=== PATIENT | female | born 2000 | race African-American/Black ===

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

== ENCOUNTER → 2018-02-11 | Outpatient (CLI) | payer MEDICAID ==
[~2018-02-11] MED LIST changes: +ACET325T15 PO; +CEPH-459 PO; +CEPH-460 PO; +DOCU1CAP39 PO
== END ==
LOC: HPND 11:30
PROVIDERS: ATTEND Obstetrics & Gynecology
DX: O26.872 Cervical shortening, second trimester (principal); O09.32 Supervision of pregnancy with insufficient antenatal care, second trimester
CPT/HCPCS: 76816

== ENCOUNTER 2018-02-14 20:22 | Inpatient (IN) | payer MEDICAID ==
[~2018-02-14] VITALS: Ht 177.8 cm; Wt 63.5 kg
[~2018-02-14 20:22] MED LIST changes: -ACET325T15 PO; -CEPH-459 PO; -CEPH-460 PO; -DOCU1CAP39 PO
--- NOTE | 2018-02-14 20:49 | PD ---
HPI Chief Complaint Abdominal pain Date Seen: February 14, 2018 Travel History International Travel<30 Days: No Contact w/Intl Traveler<30Days: No Known Affected Area: No History of Present Illness HPI The patient is a 17 year old at 21/5 weeks gestation presents to OB triage for evaluation of abdominal pain. She states her abdominal pain began today disported properly at the right upper quadrant. She states she feels the pain mostly when she stands up at the right upper quadrant and right rib cage area that sometimes radiates if she feels pain in her left upper quadrant. She denies any leakage or gush of fluid. Denies contractions. Endorses positive movements. She denies any recent fevers or sick symptoms. She does endorse chills. She denies dysuria or hematuria. She does endorse some back pain. She denies any decreased p.o. intake of solids or liquids lately. She reports good oral hydration at home. Para: 0 : 1 History Past Medical History Narrative Medical Reports she is healthy Obstetric History Obstetric History Past Surgical History Surgical History: No Previous Surgery Family History Family History: Negative Social History Alcohol Use: No Tobacco Use: No Substance Abuse: No Allergies-Medications (Allergen,Severity, Reaction): Coded Allergies: No Known Allergies (Verified Adverse Reaction, Unknown, 08/21/17) Home Meds Active Scripts Cephalexin Monohydrate (Keflex) 250 Mg/5 Ml Susp, 10 ML PO BID for 10 Days Prov:Carlos Alberto Patel MD 01/26/11 Review of Systems Except as stated in HPI: all other systems reviewed are Neg Physical Exam Narrative GENERAL: Well-nourished, well-developed patient. SKIN: Warm and dry. HEAD: Normocephalic and atraumatic. EYES: No scleral icterus. No injection or drainage. ENT: No nasal drainage noted. Mucous membranes pink. Airway patent. NECK: Supple, trachea midline. No JVD. CARDIOVASCULAR: Regular rate and rhythm without murmurs, gallops, or rubs. RESPIRATORY: Breath sounds equal bilaterally. No accessory muscle use. ABDOMEN/GI: Abdomen soft, non-tender, bowel sounds present, no rebound, no guarding Gravid to 21 weeks size GENITOURINARY (performed by Dr. Shaw with female scrap handler present in examination room): External Genitalia: intact and normal in appearance Cervix: [-] Dilatation: Closed Effacement: Thick Station: [-] Presentation: [-] Membranes: [-] Uterine Contractions: [-] FHT's: 150s bpm on Doppler EXTREMITIES: No cyanosis or edema. BACK: Nontender without obvious deformity. +right sided CVA tenderness NEUROLOGICAL: Awake and alert. Motor and sensory grossly within normal limits. Normal speech. Data Data Vital Signs Reviewed: Yes [facility] Medical Record Reviewed: Yes Plan 17 year old female at 21/5 weeks gestation being evaluated due to abdominal pain. 1. Pyelonephritis - Abdominal pain likely due to pyelonephritis as the patient is reporting chills , + right-sided CVA tenderness, positive findings on UA - Patient denies vaginal bleeding or other abnormal vaginal discharge - UA positive for nitrites, mod leuk esterase - Will send urine for UA and culture regardless of UA findings - Check cbc, cmp, lactic acid, blood cultures - Cervix closed, long, and thick - Start patient on Ancef 2gm IV q8h - Start LR at 125 cc/hr - Continue to monitor vitals closely, monitoring for resolution of symptoms ideally within 48 hours of IV antibiotics Rik Butler Dr., MD R2 February 14, 2018 20:49
[2018-02-14] MEDS ORDERED: SODIUM CHLORIDE 0.9% FLUSH 10 ML FLUSH IV FLUSH PRN (21:15)
[2018-02-14] MEDS: SODIUM CHLORIDE 0.9% FLUSH 10 ML FLUSH IV FLUSH SCH (21:15)
--- NOTE | 2018-02-14 21:20 | HHI.HP ---
History & Physical H&P HPI Chief Complaint Abdominal pain Date Seen: February 14, 2018 Travel History International Travel<30 Days: No Contact w/Intl Traveler<30Days: No Known Affected Area: No History of Present Illness HPI The patient is a 17 year old at 21/5 weeks gestation presents to OB triage for evaluation of abdominal pain. She states her abdominal pain began today disported properly at the right upper quadrant. She states she feels the pain mostly when she stands up at the right upper quadrant and right rib cage area that sometimes radiates if she feels pain in her left upper quadrant. She denies any leakage or gush of fluid. Denies contractions. Endorses positive movements. She denies any recent fevers or sick symptoms. She does endorse chills. She denies dysuria or hematuria. She does endorse some back pain. She denies any decreased p.o. intake of solids or liquids lately. She reports good oral hydration at home. Para: 0 : 1 History Past Medical History Narrative Medical Reports she is healthy Obstetric History Obstetric History Past Surgical History Surgical History: No Previous Surgery Family History Family History: Negative Social History Alcohol Use: No Tobacco Use: No Substance Abuse: No Allergies-Medications (Allergen,Severity, Reaction): Coded Allergies: No Known Allergies (Verified Adverse Reaction, Unknown, 08/21/17) Home Meds Active Scripts Cephalexin Monohydrate (Keflex) 250 Mg/5 Ml Susp, 10 ML PO BID for 10 Days Prov:Carlos Alberto Patel MD 01/26/11 Review of Systems Except as stated in HPI: all other systems reviewed are Neg Physical Exam Narrative GENERAL: Well-nourished, well-developed patient. SKIN: Warm and dry. HEAD: Normocephalic and atraumatic. EYES: No scleral icterus. No injection or drainage. ENT: No nasal drainage noted. Mucous membranes pink. Airway patent. NECK: Supple, trachea midline. No JVD. CARDIOVASCULAR: Regular rate and rhythm without murmurs, gallops, or rubs. RESPIRATORY: Breath sounds equal bilaterally. No accessory muscle use. ABDOMEN/GI: Abdomen soft, non-tender, bowel sounds present, no rebound, no guarding Gravid to 21 weeks size GENITOURINARY (performed by Dr. Shaw with female mechanical systems design engineer present in examination room): External Genitalia: intact and normal in appearance Cervix: [-] Dilatation: Closed Effacement: Thick Station: [-] Presentation: [-] Membranes: [-] Uterine Contractions: [-] FHT's: 150s bpm on Doppler EXTREMITIES: No cyanosis or edema. BACK: Nontender without obvious deformity. +right sided CVA tenderness NEUROLOGICAL: Awake and alert. Motor and sensory grossly within normal limits. Normal speech. Data Data Vital Signs Reviewed: Yes [facility] Medical Record Reviewed: Yes Plan 17 year old female at 21/5 weeks gestation being evaluated due to abdominal pain. 1. Pyelonephritis - Abdominal pain likely due to pyelonephritis as the patient is reporting chills , + right-sided CVA tenderness, positive findings on UA - Patient denies vaginal bleeding or other abnormal vaginal discharge - UA positive for nitrites, mod leuk esterase - Will send urine for UA and culture regardless of UA findings - Check cbc, cmp, lactic acid, blood cultures - Cervix closed, long, and thick - Start patient on Ancef 2gm IV q8h - Start LR at 125 cc/hr - Continue to monitor vitals closely, monitoring for resolution of symptoms ideally within 48 hours of IV antibiotics viw Rik Ellis MD R2 February 14, 2018 21:20
[2018-02-14 21:25] LABS: BILIRUBIN, URINE NEG (NEG); BLOOD, URINE SMALL (NEG); GLUCOSE,URINE NEG (NEG); KETONE, URINE NEG (NEG); NITRITE,URINE POS (NEG); PH, URINE 5.5 (5.0-8.5); URINE COLOR Light (YELLW/STRAW); URINE LEUKOCYTE ESTERASE SMALL (NEG)
[2018-02-14] MEDS: LACTATED RINGER'S 1000 ML INJ 1,000 ML IV SCH (21:30)
[2018-02-14 21:34] LABS: BACTERIA, URINE OCC /hpf; MUCUS URINE MANY /lpf (OCC); SQUAMOUS EPITHELIAL CELL URINE 1 /hpf (0-5)
[2018-02-14] MEDS: oxyCODONE/ACETAMINOPHEN 5 MG/325 MG TAB PO PRN (22:00)
[2018-02-14 22:39] LABS: BASOPHIL % 0.3 % (0.0-2.0); EOSINOPHIL % 0.1 % (0.0-4.0); HEMATOCRIT 29.1 % (35.0-46.0); HEMOGLOBIN 10.1 GM/DL (11.6-15.3); LYMPH % 3.2 % (9.0-44.0); LYMPHOCYTE # 0.3 TH/MM3 (1.0-4.8); MEAN CELL VOLUME 81.8 FL (80.0-100.0); MEAN CORPUSCULAR HEMOGLOBIN 28.3 PG (27.0-34.0); MEAN CORPUSCULAR HGB CONC 34.6 % (32.0-36.0); MEAN PLATELET VOLUME 7.6 FL (7.0-11.0); MONO % 4.5 % (0.0-8.0); MONOCYTE # 0.5 TH/MM3 (0-0.9); NEUT % 91.9 % (16.0-70.0); PLATELET COUNT 203 TH/MM3 (150-450); RED BLOOD COUNT 3.56 MIL/MM3 (4.00-5.30); RED CELL DISTRIBUTION WIDTH 14.4 % (11.6-17.2); WHITE BLOOD COUNT 10.9 TH/MM3 (4.0-11.0)
[2018-02-14 22:57] LABS: ALBUMIN 2.8 GM/DL (3.4-5.0); ALT (GPT) 16 U/L (9-42); AST (GOT) 14 U/L (16-38); BLOOD UREA NITROGEN 3 MG/DL (7-18); CALCIUM 8.4 MG/DL (8.5-10.1); CHLORIDE 105 MEQ/L (98-107); CREATININE 0.41 MG/DL (0.50-1.00); GLOMERULAR FILTRATION RATE 242 ML/MIN (>89); GLUCOSE,RANDOM 88 MG/DL (74-106); SODIUM (NA) 138 MEQ/L (136-145)
[2018-02-14 22:59] LABS: ALKALINE PHOSPHATASE 62 U/L (45-117); TOTAL BILIRUBIN ADULT 0.3 MG/DL (0.2-1.0); TOTAL PROTEIN 6.1 GM/DL (6.4-8.2)
[2018-02-14] MEDS: ceFAZolin 2 GM PREMIX 50 ML IV SCH (23:00)
[2018-02-15] MEDS: oxyCODONE/ACETAMINOPHEN 5 MG/325 MG TAB PO PRN ×2 (02:00→17:16)
[2018-02-15] MEDS: LACTATED RINGER'S 1000 ML INJ 1,000 ML IV SCH ×3 (05:30→21:30)
[2018-02-15] MEDS: ceFAZolin 2 GM PREMIX 50 ML IV SCH ×3 (06:41→23:00)
--- NOTE | 2018-02-15 07:46 | PD.OB.ANTE ---
Subjective Diagnosis: (1) Pyelonephritis affecting in second trimester Diagnosis: Principal Interval History having less pain since admission, no N/V/D . Afeb VSS Objective Lab & Micro Results Test 02/14/18 20:44 02/14/18 22:22 Urine Color Light Urine Turbidity Slightly Urine pH 5.5 Urine Specific Beatrice 1.015 Urine Protein NEG mg/dL Urine Glucose (UA) NEG mg/dL Urine Ketones NEG mg/dL Urine Occult Blood SMALL Urine Nitrite POS Urine Bilirubin NEG Urine Urobilinogen 0.2 MG/DL Urine Leukocyte Esterase SMALL Urine WBC 50 /hpf Urine Squamous Epithelial Cells 1 /hpf Urine Bacteria OCC /hpf Urine Mucus MANY /lpf Microscopic Urinalysis Comment CULTURE INDICATED White Blood Count 10.9 TH/MM3 Red Blood Count 3.56 MIL/MM3 Hemoglobin 10.1 GM/DL Hematocrit 29.1 % Mean Corpuscular Volume 81.8 FL Mean Corpuscular Hemoglobin 28.3 PG Mean Corpuscular Hemoglobin Concent 34.6 % Red Cell Distribution Width 14.4 % Platelet Count 203 TH/MM3 Mean Platelet Volume 7.6 FL Neutrophils (%) (Auto) 91.9 % Lymphocytes (%) (Auto) 3.2 % Monocytes (%) (Auto) 4.5 % Eosinophils (%) (Auto) 0.1 % Basophils (%) (Auto) 0.3 % Neutrophils # (Auto) 10.0 TH/MM3 Lymphocytes # (Auto) 0.3 TH/MM3 Monocytes # (Auto) 0.5 TH/MM3 Eosinophils # (Auto) 0.0 TH/MM3 Basophils # (Auto) 0.0 TH/MM3 CBC Comment DIFF FINAL Differential Comment Blood Urea Nitrogen 3 MG/DL Creatinine 0.41 MG/DL Random Glucose 88 MG/DL Total Protein 6.1 GM/DL Albumin 2.8 GM/DL Calcium Level 8.4 MG/DL Alkaline Phosphatase 62 U/L Aspartate Amino Transf (AST/SGOT) 14 U/L Alanine Aminotransferase (ALT/SGPT) 16 U/L Total Bilirubin 0.3 MG/DL Sodium Level 138 MEQ/L Potassium Level 3.3 MEQ/L Chloride Level 105 MEQ/L Carbon Dioxide Level 25.0 MEQ/L Anion Gap 8 MEQ/L Estimat Glomerular Filtration Rate 242 ML/MIN Lactic Acid Level 1.2 mmol/L Date/Time Source Procedure Growth Status 02/14/18 22:27 Blood Peripheral Aerobic Blood Culture Pending Received 02/14/18 22:27 Blood Peripheral Anaerobic Blood Culture Pending Received 02/14/18 20:44 Urine Clean Catch Urine Culture Pending Received Physical Exam GENERAL: Well-nourished, well-developed patient. CARDIOVASCULAR: Regular rate and rhythm without murmurs, gallops, or rubs. RESPIRATORY: Breath sounds equal bilaterally. No accessory muscle use. ABDOMEN/GI: Abdomen soft, non-tender.less CVAT on R Fundus: [-at umb] GENITOURINARY: External Genitalia: intact and normal in appearance FHT's:144 EXTREMITIES: No cyanosis or edema, non-tender, without signs of DVT. Assessment and Plan Assessment and Plan Pyelo at 21 wks , Urine & blood Cult pending Improving on IV Ancef 2 gm q 8 D/C after48 hrs IVATB , decreased CVAT ,Afeb >24 hrs Mauro Shaw II, MD February 15, 2018 07:46
[2018-02-15 08:52] VITALS: BP 82/40; PULSE 116
[2018-02-15 09:00] VITALS: TEMP 99.5
[2018-02-15] MEDS: SODIUM CHLORIDE 0.9% FLUSH 10 ML FLUSH IV FLUSH SCH ×2 (09:00→21:00)
[2018-02-15] MEDS: ACETAMINOPHEN 325 MG TAB PO PRN ×2 (09:12→17:17)
[2018-02-15 12:28] VITALS: BP 99/46; PULSE 112; RESP 18; TEMP 99.3
[2018-02-15 16:54] VITALS: TEMP 101.2
[2018-02-15] MEDS ORDERED: Gentamicin Consult Pharmacy 1 EA OTHER SCH (17:30)
[2018-02-15] MEDS: GENTAMICIN INJ 320 MG in SODIUM CHLORIDE 0.9% INJ 100 ML IV SCH (20:00)
[2018-02-15 21:00] VITALS: RESP 18; TEMP 98.9
[2018-02-16] VITALS (10 sets, daily range): BP systolic 84–104; BP diastolic 41–62; PULSE 99–126; RESP 17; TEMP 98.1–98.6
[2018-02-16] MEDS: LACTATED RINGER'S 1000 ML INJ 1,000 ML IV SCH ×2 (02:24→08:08)
[2018-02-16] MEDS: ceFAZolin 2 GM PREMIX 50 ML IV SCH ×3 (07:40→22:44)
[2018-02-16] MEDS: SODIUM CHLORIDE 0.9% FLUSH 10 ML FLUSH IV FLUSH SCH (09:00)
--- NOTE | 2018-02-16 09:10 | PD.OB.ANTE ---
Subjective Diagnosis: (1) Pyelonephritis affecting in second trimester Diagnosis: Principal Interval History Patient is a 17-year-old 22 weeks and 0 days who presented with pyelonephritis. She had a fever overnight at around 5 PM of 101.2. Thus, for lack of clinical improvement, antibiotics were switched from Ancef to gentamicin. Today, she denies any fever, chills, nausea, vomiting, dysuria. She reports that her back pain is improving. Antepartum ROS: Reports: movement normal, Denies: New complaints, Loss of fluid, Vaginal bleeding, Contractions (Yordan Ridley MD R2) Objective Vital Signs Vital Signs Date Time Temp Pulse Resp B/P (MAP) Pulse Ox O2 Delivery O2 Flow Rate FiO2 02/16/18 07:51 98.6 17 02/16/18 07:45 110 89/43 (58) 02/16/18 06:31 126 104/41 (62) 02/15/18 21:00 98.9 18 02/15/18 16:54 101.2 02/15/18 12:28 99.3 18 02/15/18 12:28 112 99/46 (63) Lab & Micro Results Date/Time Source Procedure Growth Status 02/14/18 22:27 Blood Peripheral Aerobic Blood Culture - Preliminary NO GROWTH IN 1 DAY Resulted 02/14/18 22:27 Blood Peripheral Anaerobic Blood Culture - Preliminary NO GROWTH IN 1 DAY Resulted 02/14/18 20:44 Urine Clean Catch Urine Culture - Preliminary Gram Negative Emerson Resulted Physical Exam GENERAL: Well-nourished, well-developed patient. CARDIOVASCULAR: Regular rate and rhythm with iii/vi systolic murmur, but no gallops or rubs. RESPIRATORY: Breath sounds equal bilaterally. No accessory muscle use. ABDOMEN/GI: Abdomen soft, non-tender. Fundus: c/w 22 week gestation FHT's: Category: [Cat I] Baseline: [150] Reactive: [no accelerations noted today] Variability: [moderate] Decels: [none] EXTREMITIES: No cyanosis or edema, non-tender, without signs of DVT. (Yordan Ridley MD R2) Assessment and Plan Problem List: (1) Pyelonephritis affecting in second trimester ICD Codes: O23.02 - Infections of kidney in , second trimester Assessment and Plan Patient is a 17-year-old 22 weeks and 0 days who presented with pyelonephritis. She had a fever overnight at around 5 PM of 101.2. Thus, for lack of clinical improvement, antibiotics were switched from Ancef to gentamicin last night. 1. Pyelonephritis in -She reports that her back pain is improving. -Urine culture grew gram-negative emerson, antibiotic sensitivities pending; will follow -blood culture NGTD in 1 day -Ancef 2 gm IV q8h, started on 02/14 at 2300; gentamicin started 02/15 at 2000; plan for 48h IV abx -last fever on 02/15 at 1700, will be afebrile for over 24 hours at 1700 today d/w Dr. Hankins (Yordan Ridley MD R2) Assessment and Plan Patient seen and evaluated with resident under direct supervision, agree with assessment and plan. (Sagar Hankins MD) Yordan Ridley MD R2 February 16, 2018 09:10 Sagar Hankins MD February 16, 2018 09:36
[2018-02-16] MEDS: oxyCODONE/ACETAMINOPHEN 5 MG/325 MG TAB PO PRN ×2 (13:51→22:43)
[2018-02-16] MEDS: GENTAMICIN INJ 320 MG in SODIUM CHLORIDE 0.9% INJ 100 ML IV SCH (19:53)
[2018-02-16] MEDS ORDERED: BISACODYL EC 5 MG TABEC PO ONE (20:30)
[2018-02-16] MEDS: DOCUSATE SODIUM 100 MG CAP PO SCH (22:44)
[2018-02-17] VITALS (8 sets, daily range): BP systolic 95–100; BP diastolic 56–61; PULSE 103–107; RESP 17–18; TEMP 98–98.5
[2018-02-17] MEDS: LACTATED RINGER'S 1000 ML INJ 1,000 ML IV SCH ×2 (06:23→14:31)
[2018-02-17] MEDS: ceFAZolin 2 GM PREMIX 50 ML IV SCH ×2 (06:23→14:31)
--- NOTE | 2018-02-17 08:17 | PD.OB.ANTE ---
Subjective Diagnosis: (1) Pyelonephritis affecting in second trimester Diagnosis: Principal Interval History Patient states she is feeling better less pain, however the patient erythema been in the room has been sleeping extremely hard to arouse, when asked she says she is not eating however the nurses say they have seen her eat some things she has vomited once a day since she has been here Objective Vital Signs Vital Signs Date Time Temp Pulse Resp B/P (MAP) Pulse Ox O2 Delivery O2 Flow Rate FiO2 02/17/18 07:32 98.5 18 02/16/18 18:00 17 02/16/18 17:02 100/62 (75) 02/16/18 17:00 17 02/16/18 17:00 98.2 02/16/18 13:00 98.1 02/16/18 12:36 17 02/16/18 12:35 99 84/49 (61) 02/16/18 10:42 17 Lab & Micro Results Date/Time Source Procedure Growth Status 02/14/18 22:27 Blood Peripheral Aerobic Blood Culture - Preliminary NO GROWTH IN 2 DAYS Resulted 02/14/18 22:27 Blood Peripheral Anaerobic Blood Culture - Preliminary NO GROWTH IN 2 DAYS Resulted 02/14/18 20:44 Urine Clean Catch Urine Culture - Final Escherichia Coli Complete Physical Exam GENERAL: Well-nourished, well-developed patient. CARDIOVASCULAR: Regular rate and rhythm without murmurs, gallops, or rubs. RESPIRATORY: Breath sounds equal bilaterally. No accessory muscle use. ABDOMEN/GI: Abdomen soft, non-tender. Decreased right CVA tenderness but still present slightly Fundus: [Size equal dates-] GENITOURINARY: External Genitalia: intact and normal in appearance FHT's 144 EXTREMITIES: No cyanosis or edema, non-tender, without signs of DVT. Assessment and Plan Problem List: (1) Pyelonephritis affecting in second trimester ICD Codes: O23.02 - Infections of kidney in , second trimester Assessment and Plan pyeloNephritis 21 weeks that is responding to IV antibiotics, urine culture positive for E. coli sensitive to both antibiotics, she is greater than 24 hours afebrile last fever was 5/5 5 and 101.2. Patient is somewhat anorexic concerned she is not able to or willing to take her oral antibiotics as OP Plan the patient today nurse sees her eat so that she possibly can go home after her gentamicin dose in the evening dinner 5 or 6 & give her the dose and let her go We plan for her to take p.o. Macrobid twice daily for a week and then go to Macrodantin 50 mg daily for the remainder of Mauro Shaw II, MD February 17, 2018 08:17
[2018-02-17] MEDS: SODIUM CHLORIDE 0.9% FLUSH 10 ML FLUSH IV FLUSH SCH (09:00)
[2018-02-17] MEDS: DOCUSATE SODIUM 100 MG CAP PO SCH (09:13)
[2018-02-17] MEDS ORDERED: ONDANSETRON HCL 4 MG/2 ML VIAL IV PUSH PRN (09:30)
[2018-02-17] MEDS ORDERED: ACET325T15 PO (15:31)
[2018-02-17] MEDS ORDERED: CEPH-459 PO (15:31)
[2018-02-17] MEDS ORDERED: CEPH-460 PO (15:31)
[2018-02-17] MEDS ORDERED: DOCU1CAP39 PO (15:32)
--- NOTE | 2018-02-17 15:33 | HHI.DCPOC ---
Discharge Care Plan Diagnosis: (1) Pyelonephritis affecting in second trimester Report Symptoms to Your Doctor -Temperature above 100.5 degrees -Redness, of incision or excessive or foul smelling drainage -Unusual pain or calf pain -Increased vaginal bleeding -Painful or difficulty urinating -Feelings of extreme sadness or anxiety after 2 weeks Goals to Promote Your Health * To prevent worsening of your condition and complications, take all of your medications as prescribed and follow up with your OB provider within one week after hospital discharge. Directions to Meet Your Goals Take your medications as prescribed Follow your dietary instruction Follow activity as directed Ensure plenty of rest for recovery Drink fluids for hydration Keep your appointments as scheduled Take your immunizations and boosters as scheduled If your symptoms worsen call your PCP, if no PCP go to Urgent Care Center or Emergency Room Smoking is Dangerous to Your Health. Avoid second hand smoke Call the 24-hour crisis hotline for domestic abuse at Rik Arriaza MD R2 February 17, 2018 15:33
--- NOTE | 2018-02-19 14:43 | HHI.DS ---
Discharge Summary Admission Date February 14, 2018 at 21:23 Discharge Date: February 17, 2018 Admitting Diagnosis Pyelonephritis (1) Pyelonephritis affecting in second trimester Plan: Pyelonephritis 21 weeks that is responding to IV antibiotics, urine culture positive for E. coli sensitive to both antibiotics, she is greater than 24 hours afebrile last fever was 5/5 and 101.2. Patient is somewhat anorexic concerned she is not able to or willing to take her oral antibiotics as OP The patient after monitoring is able to tolerate a p.o. diet Patient was instructed as an outpatient to continue with Keflex 500 mg by mouth every 12 hours for 1 week followed by Keflex 50 mg by mouth every night for the remainder . ICD Codes: O23.02 - Infections of kidney in , second trimester Consultants None Brief History The patient is a 17 year old at 21/5 weeks gestation presents to OB triage for evaluation of abdominal pain. She states her abdominal pain began today disported properly at the right upper quadrant. She states she feels the pain mostly when she stands up at the right upper quadrant and right rib cage area that sometimes radiates if she feels pain in her left upper quadrant. She denies any leakage or gush of fluid. Denies contractions. Endorses positive movements. She denies any recent fevers or sick symptoms. She does endorse chills. She denies dysuria or hematuria. She does endorse some back pain. She denies any decreased p.o. intake of solids or liquids lately. She reports good oral hydration at home. PE at Discharge GENERAL: Well-nourished, well-developed patient. CARDIOVASCULAR: Regular rate and rhythm without murmurs, gallops, or rubs. RESPIRATORY: Breath sounds equal bilaterally. No accessory muscle use. ABDOMEN/GI: Abdomen soft, non-tender. Decreased right CVA tenderness but still present slightly Fundus: [Size equal dates-] GENITOURINARY: External Genitalia: intact and normal in appearance FHT's 144 EXTREMITIES: No cyanosis or edema, non-tender, without signs of DVT. Hospital Course The patient was started on Ancef 2 g IV q8h as well as maintenance IVF with LR at 125 cc/hr. cervix was noted to be long, thick, closed. Her urine culture returned > 100,000 cfus of E. coli sensitive to nitrofurantoin and gentamicin; resistant only to tetracyclines, trimethoprim, and Bactrim. The patient did well while hospitalized and was discharged after afebrile for nearly 48 hours. She was able to tolerate a p.o. diet. She was discharged with instructions to continue antibiotics with Keflex 500 mg by mouth every 12 hours for 1 week followed by Keflex 250 mg by mouth every night for the remainder of her . Pt Condition on Discharge: Stable Discharge Disposition: Discharge Home Discharge Instructions DIET: Follow Instructions for: As Tolerated, No Restrictions Activities you can perform: Regular-No Restrictions Follow up Referrals: SALES MARKETING COORDINATOR - 2-3 Days New Medications: Cephalexin (Keflex) 500 Mg Cap 500 MG PO Q12H for Infection, #14 CAP 0 Refills Cephalexin (Keflex) 250 Mg Cap 250 MG PO HS for Infection, #135 CAP 0 Refills Acetaminophen (Eq Acetaminophen) 325 Mg Tab 650 MG PO Q4H PRN for TEMP>100.4F,PAIN1-10,IRRITABLE, #30 TAB Docusate Sodium (Dok) 100 Mg Cap 100 MG PO BID, #30 CAP Rik Arriaza MD R2 February 19, 2018 14:43
== END 2018-02-17 17:32 | disposition home or self-care (01) | DRG 781 ==
LOC: HOBED 20:22 → H2EA 21:23 → OBSVTOIN 21:23
PROVIDERS: ADMIT Obstetrics & Gynecology Maternal & Fetal Medicine; ATTEND Obstetrics & Gynecology Maternal & Fetal Medicine
DX: O23.02 Infections of kidney in pregnancy, second trimester (principal); B96.20 Unspecified Escherichia coli [E. coli] as the cause of diseases classified elsewhere; Z3A.21 21 weeks gestation of pregnancy
CPT/HCPCS: 80053; 80170; 81001; 83605; 85025; 87040; 87077; 87086; 87186; J0690; J1580; J2405; J3010; J7120

== ENCOUNTER 2018-06-08 12:16 | Inpatient (IN) ==
[2018-06-08] MEDS ORDERED: Oxytocin 30 Units/500ml Premix 30 UNITS/500 ML BAG IV.SIG ONE (13:00)
[2018-06-08] MEDS ORDERED: Sodium Chlor 0.9% Inj 500 ML IV.SIG PRN (13:02)
[2018-06-08] MEDS ORDERED: Sod Chloride 0.9% Inj 1,000 ML IV.CONT PRN (13:02)
[2018-06-08] MEDS ORDERED: Oxytocin 30 Units/500ml Premix 30 UNITS/500 ML BAG IV.SIG PRN (13:02)
[2018-06-08] MEDS ORDERED: fentaNYL Citrate Inj 100 MCG/2 ML Ampul IV.PUSH PRN ×2 (13:02)
[2018-06-08] MEDS ORDERED: Naloxone Inj 0.4 MG/ML Vial IV.PUSH PRN (13:02)
--- NOTE | 2018-06-08 13:14 | ED ---
History of Present Illness Primary Care Physician: No Primary Care Physician Chief Complaint: Loss of fluid History of Present Illness: Ms. Fong is a at 38/0 here for loss of fluid at 11:20 this am. She reports a large gush of fluid, no odor, clear in color. Some associated decreased movement. She denies any vaginal bleeding, abdominal pain or contractions. has been complicated by 2 UTIs with the last progressing to pyelonephritis. Patient reports that she is on daily antibiotics prophylaxis, records reveal that antibiotic is Bactrim. Denies any other complications during . GBS status negative. Review of Systems Constitutional: Denies fever(s), Denies headache(s) Eyes: Denies blurry vision, Denies change in vision Ears, Nose, Mouth, and Throat: Denies sore throat Cardiovascular: Denies chest pain, Denies leg swelling Respiratory: Denies cough, Denies shortness of breath Gastrointestinal: Denies nausea, Denies vomiting Genitourinary: Denies difficulty urinating, Denies painful urination, Denies pelvic pain PMFSH - Medical History Medical History: Medical History (Last Updated 05/11/18 @ 23:58 by Sagar Hankins MD) History of pyelonephritis during - Tobacco History Smoking Status: Never smoker - Alcohol History How Often Do You Have a Drink Containing Alcohol: Never (Not during ) - Substance Use History Substance History: No History of Abuse - Travel History Recent Travel in the [facility] Within the Last 8 Weeks: No Recent Travel Out of the Country Within the Last 8 Weeks: No Medications and Allergies Allergies Allergy/AdvReac Type Severity Reaction Status Date / Time No Known Drug Allergies Allergy Unknown none Verified 06/08/18 15:35 Home Medications Medication Instructions Recorded Confirmed Type [id number] oil 1 tab PO DAILY 06/08/18 06/08/18 History [ Gummy] Exam Vital signs: Vital Signs 06/08/18 12:37 Temperature 98.5 F Pulse Rate 142 H Respiratory Rate 16 Blood Pressure 99/68 L Intake & Output 06/07/18 06/08/18 06/08/18 18:59 06:59 18:59 Weight 68.353 kg Narrative: GENERAL: Well-nourished, well-developed patient. SKIN: Warm and dry. HEAD: Normocephalic and atraumatic. CARDIOVASCULAR: Regular rate and rhythm without murmurs, gallops, or rubs. RESPIRATORY: Breath sounds equal bilaterally. No accessory muscle use. ABDOMEN/GI: Abdomen soft, non-tender, bowel sounds present, no rebound, no guarding Gravid GENITOURINARY: External Genitalia: intact and normal in appearance Cervix: Dilatation: 1-2 Effacement: 80 Station: -2 Presentation: Cephalic Membranes: Ruptured Uterine Contractions: Present FHT's: Category: 1 Baseline: 150 Reactive: Yes Variability: Moderate Decels: None EXTREMITIES: No cyanosis or edema. BACK: Nontender without obvious deformity. No CVA tenderness. NEUROLOGICAL: Awake and alert. Motor and sensory grossly within normal limits. Normal speech. Results - Labs CBC & Chem 7: 06/08/18 17:50 Assessment and Plan - Diagnosis (1) SROM (spontaneous rupture of membranes) Status: Acute - Plan 17-year-old female at 38 and 0 with spontaneous rupture of membranes at 1120 this a.m. reassuring heart tracing Admit to labor and delivery HIV screen, RPR, UA, OB/ psych drug screen, Naheed /GC PCR, rubella antibody, hepatitis profile Cervidil placement Continuous monitoring Expectant management - Attending Attestation The exam, history, and the medical decision-making described in the above note were completed with the assistance of the resident physician. I reviewed and agree with the findings presented. I attest that I had a [id number] encounter with the patient on the same day, and personally performed and documented my assessment and findings in the medical record. Discharge Plan - Physicians Team Primary Care Provider: Primary Care Marcio,[place] Attending Provider: Sagar Hankins
[2018-06-08] MEDS ORDERED: Citric Acid/Sodium Citrate Liq 30 ML UDC PO SCH (13:15)
[2018-06-08 14:15] LABS: Amphetamine Urine With Conf Neg (Neg); Benzodiazepine Urine With Conf Neg (Neg)
--- NOTE | 2018-06-08 14:21 | P.HPOB ---
History of Present Illness Primary Care Physician: No Primary Care Physician Chief Complaint: Loss of fluid History of Present Illness: Ms. Fong is a at 38/0 here for loss of fluid at 11:20 this am. She reports a large gush of fluid, no odor, clear in color. Some associated decreased movement. She denies any vaginal bleeding, abdominal pain or contractions. has been complicated by 2 UTIs with the last progressing to pyelonephritis. Patient reports that she is on daily antibiotics prophylaxis, records reveal that antibiotic is Bactrim. Denies any other complications during . GBS status negative. Review of Systems Constitutional: Denies fever(s), Denies headache(s) Eyes: Denies blurry vision, Denies change in vision Ears, Nose, Mouth, and Throat: Denies sore throat Cardiovascular: Denies chest pain, Denies leg swelling Respiratory: Denies cough, Denies shortness of breath Gastrointestinal: Denies nausea, Denies vomiting Genitourinary: Denies difficulty urinating, Denies painful urination, Denies pelvic pain PMFSH - Medical History Medical History: Medical History (Last Updated 05/11/18 @ 23:58 by Sagar Hankins MD) History of pyelonephritis during - Tobacco History Smoking Status: Never smoker - Alcohol History How Often Do You Have a Drink Containing Alcohol: Never (Not during ) - Substance Use History Substance History: No History of Abuse - Travel History Recent Travel in the [facility] Within the Last 8 Weeks: No Recent Travel Out of the Country Within the Last 8 Weeks: No Medications and Allergies Allergies Allergy/AdvReac Type Severity Reaction Status Date / Time No Known Allergies Allergy Unknown Uncoded 02/14/18 21:18 Home Medications Medication Instructions Recorded Confirmed Type [id number] oil 1 tab PO DAILY 06/08/18 06/08/18 History [ Gummy] Exam Vital signs: Vital Signs 06/08/18 12:37 Temperature 98.5 F Pulse Rate 142 H Respiratory Rate 16 Blood Pressure 99/68 L Intake & Output 06/07/18 06/08/18 06/08/18 18:59 06:59 18:59 Weight 68.353 kg Narrative: GENERAL: Well-nourished, well-developed patient. SKIN: Warm and dry. HEAD: Normocephalic and atraumatic. CARDIOVASCULAR: Regular rate and rhythm without murmurs, gallops, or rubs. RESPIRATORY: Breath sounds equal bilaterally. No accessory muscle use. ABDOMEN/GI: Abdomen soft, non-tender, bowel sounds present, no rebound, no guarding Gravid GENITOURINARY: External Genitalia: intact and normal in appearance Cervix: Dilatation: 1-2 Effacement: 80 Station: -2 Presentation: Cephalic Membranes: Ruptured Uterine Contractions: Present FHT's: Category: 1 Baseline: 150 Reactive: Yes Variability: Moderate Decels: None EXTREMITIES: No cyanosis or edema. BACK: Nontender without obvious deformity. No CVA tenderness. NEUROLOGICAL: Awake and alert. Motor and sensory grossly within normal limits. Normal speech. Assessment and Plan - Diagnosis (1) SROM (spontaneous rupture of membranes) Status: Acute - Plan 17-year-old female at 38 and 0 with spontaneous rupture of membranes at 1120 this a.m. reassuring heart tracing Admit to labor and delivery HIV screen, RPR, UA, OB/ psych drug screen, Naheed /GC PCR, rubella antibody, hepatitis profile Cervidil placement Continuous monitoring Expectant management Discharge Plan - Discharge Disposition Patient Disposition: 02 Transfer To [facility] [place] - Discharge Condition Condition: Good - Physicians Team Primary Care Provider: Primary Care Marcio,[place] Attending Provider: Sagar Hankins The exam, history, and the medical decision-making described in the above note were completed with the assistance of the resident physician. I reviewed and agree with the findings presented. I attest that I had a [id number] encounter with the patient on the same day, and personally performed and documented my assessment and findings in the medical record.
[2018-06-08 14:33] LABS: Bacteria,Urine Moderate /hpf; Bilirubin,Urine Negative (Negative); Color,Urine Yellow (Yellw/Straw); Glucose,Urine (UA) Negative (Negative); Leukocyte Esterase,Urine Large (Negative); Mucus,Urine Few /lpf (Occasional); Nitrite,Urine Negative (Negative); Specific Gravity,Urine 1.008 (1.002-1.035); Squamous Epithelial Cell,Urine 12 /hpf (0-5)
[2018-06-08 14:34] LABS: Clarity,Urine Hazy (Clear)
[2018-06-08 18:15] LABS: Baso % (Auto) 0.3 % (0.0-2.0); Eos % (Auto) 0.2 % (0.0-4.0); Hematocrit 32.9 % (35.0-46.0); Lymph # (Auto) 1.5 th/mm3 (1.0-4.8); Lymph % (Auto) 16.9 % (9.0-44.0); Mean Corpuscular HGB Conc 33.5 % (32.0-36.0); Mean Corpuscular Hemoglobin 26.6 pg (27.0-34.0); Mean Corpuscular Volume 79.5 fL (80.0-100.0); Mean Platelet Volume 9.1 fL (7.0-11.0); Mono # (Auto) 0.6 th/mm3 (0.0-0.9); Mono % (Auto) 7.2 % (0.0-8.0); Neut # (Auto) 6.6 th/mm3 (1.8-7.7); Neut % (Auto) 75.4 % (16.0-70.0); Platelet Count 150 th/mm3 (150-450); Red Blood Count 4.14 mil/mm3 (4.00-5.30); White Blood Count 8.7 th/mm3 (4.0-11.0)
--- NOTE | 2018-06-08 20:12 | P.OBLABOR ---
Subjective Interval history: S: Ms. Fong is a 17 year old at 38/0 who presented following rupture of membrane at approximately 11:20 this morning; she describes a large gush of fluid, no odor, clear in color. Patient was admitted for induction of labor; cervidil placed at 15:30. Patient is doing well overall. She denies contractions. She endorses positive movement. Objective Vital Signs: Vital Signs - 8 hr 06/08/18 12:37 06/08/18 13:55 06/08/18 14:00 Temperature 98.5 F Pulse Rate 142 H 97 H 129 H Respiratory Rate 16 18 Blood Pressure 99/68 L 126/93 H 06/08/18 15:25 06/08/18 15:30 06/08/18 15:40 Temperature 98.1 F Pulse Rate 113 H 98 H Respiratory Rate 16 Blood Pressure 114/80 06/08/18 15:50 06/08/18 16:46 06/08/18 17:40 Temperature Pulse Rate 100 H 97 H 93 H Respiratory Rate Blood Pressure 123/76 119/80 117/75 06/08/18 18:40 Temperature Pulse Rate 109 H Respiratory Rate Blood Pressure 126/86 Objective: GENERAL: Well-nourished, well-developed patient. SKIN: Warm and dry. HEAD: Normocephalic and atraumatic. EYES: No scleral icterus. No injection or drainage. ENT: No nasal drainage noted. Mucous membranes pink. Airway patent. NECK: Supple, trachea midline. No JVD. ABDOMEN/GI: Abdomen soft, non-tender. Gravid to 38 weeks size. GENITOURINARY: Membranes: ruptured. Uterine Contractions: sporadic. FHT's: Category: 1. Baseline: 141. Reactive: +. Variability: Moderate. Decels: None. NEUROLOGICAL: Awake and alert. Motor and sensory grossly within normal limits. Five out of 5 muscle strength in all muscle groups. Normal speech. Weeks Gestation: 38 Patient Started Active Labor: No Medical Induction of Labor: Yes Assessment and Plan - Diagnosis (1) Premature rupture of membranes Code(s): O42.90 - Premature rupture of membranes, unspecified as to length of time between rupture and onset of labor, unspecified weeks of gestation Status : Acute - Plan Ms. Fong is a 17 year old at 38/0 admitted for induction of labor, following PROM. Cervidil placed. Pitocin to be started around 3:30. q2hr vitals; if temperature spike, start antibiotics. Continuous monitoring. Expectant management. - Attending Attestation The exam, history, and the medical decision-making described in the above note were completed with the assistance of the resident physician. I reviewed and agree with the findings presented. I attest that I had a [id number] encounter with the patient on the same day, and personally performed and documented my assessment and findings in the medical record. (1) Premature rupture of membranes Qualifiers: PROM gestational age: full term
[2018-06-08 20:19] LABS: Hepatitis A IgM Antibody Nonreactive (Nonreactive); Hepatitits B Surface Antigen Nonreactive (Nonreactive)
[2018-06-09] MEDS ORDERED: fentaNYL 2MCG-Bupiv 0.125% Epi 150 ML EPIDURAL ONE (01:59)
[2018-06-09] MEDS ORDERED: Lidocaine PF 1% Inj 5 ML Vial ONE (02:02)
[2018-06-09] MEDS ORDERED: Lidocaaine 1.5%/Epinephrine 1:200,000 PF Inj 5 ML Amp ONE (02:02)
[2018-06-09] MEDS ORDERED: fentaNYL Citrate Inj 100 MCG/2 ML Ampul EPIDURAL ONE (02:30)
[2018-06-09] MEDS ORDERED: fentaNYL 2MCG-Bupiv 0.125% Epi 150 ML EPIDURAL PRN (02:30)
[2018-06-09] MEDS ORDERED: Witch Hazel 50%/Glyderin 12.5% 40 Pad Jar RECTAL PRN (04:04)
[2018-06-09] MEDS ORDERED: Bisacodyl 10 MG Supp RECTAL PRN (04:04)
[2018-06-09] MEDS ORDERED: Benzocaine 20% Top Spray 60 ML Can TOPICAL PRN (04:04)
[2018-06-09] MEDS ORDERED: Acetaminophen 325 MG Tablet PO PRN (04:04)
[2018-06-09] MEDS ORDERED: Zolpidem Tartrate 5 MG Tablet PO PRN (04:04)
[2018-06-09] MEDS ORDERED: Naloxone Inj 0.4 MG/ML Vial IV.PUSH PRN (04:04)
[2018-06-09] MEDS ORDERED: Oxytocin 30 Units/500ml Premix 30 UNITS/500 ML BAG IV.CONT PRN (04:04)
--- NOTE | 2018-06-09 04:16 | P.OBDELI ---
Weeks Gestation: 38 Patient Started Active Labor: Yes Active Labor Start Date: 06/08/18 Artificial Rupture of Membrane: No Anesthesia: Epidural Episiotomy: none Vaginal Delivery: Normal Presentation: Occiput anterior Nuchal Cord: None Delayed Cord Clamping (45 sec): Yes Placenta: Spontaneous delivery Laceration: Perineal Estimated blood loss (mL): 150 : Male Infant Male A Infant Delivery Date: 06/09/18 Delivery Time: 03:55 Weight: 2920 kg score (1 min): 8 score (5 min): 9 Additional Information: Infant head was delivered with maternal effort, OA. No nuchal cord apparent. Anterior shoulder delivered without difficulty followed shortly by the posterior shoulder. Pitocin was started. was placed on mother's chest. Placenta delivered spontaneously by maternal effort, intact. Small labial laceration noted at about 7 o' clock. Pressure was applied and hemostasis was achieved, no sutures required. Attestation Attestation: The exam, history, and the medical decision-making described in the above note were completed with the assistance of the resident physician. I reviewed and agree with the findings presented. I attest that I had a [id number] encounter with the patient on the same day, and personally performed and documented my assessment and findings in the medical record.
[2018-06-09] MEDS ORDERED: Measles/Mumps/Rubella Vaccine Inj 0.5 ML Vial SQ ONE (16:00)
[2018-06-09] MEDS ORDERED: Diphtheria/Tetanus/Pertussis Vaccine Inj 0.5 ML Syringe IM ONE (16:00)
[2018-06-09] MEDS: Senna/Docusate Sodium 8.6/50 MG Tablet PO SCH ×2 (16:55→22:04)
--- NOTE | 2018-06-10 08:26 | P.PNOB ---
Subjective Interval history: day #1 AFVSS overnight. Decreased lochia. Denies dysuria. No breast pain. Appetite good. No nausea or vomiting. Ambulating well. Denies calf pain or shortness of breath. Otherwise, she is doing well this morning and has no other complaints. Objective Vital Signs/I&O: Vital Signs 06/09/18 20:00 Temperature 98.5 F Pulse Rate 100 H Respiratory Rate 18 Blood Pressure 111/66 Result Diagrams: 06/08/18 17:50 Objective Remarks: GENERAL: Well-nourished, well-developed patient. CARDIOVASCULAR: Regular rate and rhythm without murmurs, gallops, or rubs. RESPIRATORY: Breath sounds equal bilaterally. No accessory muscle use. ABDOMEN/GI: Abdomen soft, non-tender. Fundus: Firm, non-tender at umbilicus. GENITOURINARY: Light to moderate bleeding. EXTREMITIES: No cyanosis or edema, non-tender, without signs of DVT. Medications and IVs: Active Medications Acetaminophen (Tylenol) 650 mg PO Q4H PRN PRN Reason: PAIN SCALE 1 TO 2 Al Hydroxide/Mg Hydroxide (Milk Of Magnesia Liq) 30 ml PO Q12H PRN PRN Reason: Mild Constipation Benzocaine (Americaine 20% [place]) 1 spray TOPICAL Q4H PRN PRN Reason: For Perineum Discomfort Bisacodyl (Dulcolax Supp) 10 mg RECTAL DAILY PRN PRN Reason: SEVERE CONSITIPATION Fentanyl/Bupivacaine/Sodium Chlor (Fentanyl 2 Mcg-Bupiv 0.125% Epi) 150 mls @ 12 mls/hr EPIDURAL PRN PRN PRN Reason: for Labor Pain Oxytocin (Pitocin 30 Units/Ns 500 Ml Premix) 30 units in 500 mls @ 100 mls/hr IV.CONT UNSCH PRN PRN Reason: Heavy bleeding Ibuprofen (Motrin) 800 mg PO Q8H PRN PRN Reason: For Cramping Last Admin: 06/09/18 22:03 Dose: 800 mg Lactulose (Lactulose Liq) 30 ml PO DAILY PRN PRN Reason: SEVERE CONSITIPATION Naloxone HCl (Narcan Inj) 0.1 mg IV.PUSH Q2M PRN PRN Reason: for opiate reversal Ondansetron HCl (Zofran Odt) 4 mg PO Q6H PRN PRN Reason: NAUSEA OR VOMITING Senna/Docusate Sodium (Alyssia-Colace) 1 tab PO BID [facility] Last Admin: 06/09/18 22:04 Dose: 1 tab Sennosides (Senokot) 17.2 mg PO Q12H PRN PRN Reason: Moderate Constipation Sodium Chloride (Ns Flush) 2 ml IV.FLUSH BID [facility] Last Admin: 06/09/18 22:04 Dose: 2 ml Sodium Chloride (Ns Flush) 2 ml IV.FLUSH PRN PRN PRN Reason: FLUSH AFTER USING IV ACCESS Witch [place]/Glycerin (Tucks Pads) 1 applicatio RECTAL QID PRN PRN Reason: HEMORRHOIDS Zolpidem Tartrate (Ambien) 5 mg PO HS PRN PRN Reason: SLEEP Assessment and Plan - Diagnosis (1) Premature rupture of membranes Code(s): O42.90 - Premature rupture of membranes, unspecified as to length of time between rupture and onset of labor, unspecified weeks of gestation Status : Acute - Plan 17y/o female who is PPD#1 s/p vaginal delivery. -Continue routine care. -Motrin PRN pain. -Encouraged OOB. Advised pelvic rest for 6 wks. -Re: ctrl, she would like Depo-Provera bridge to Nexplanon. -D/c likely tomorrow. wdw Dr. Shaw (1) Premature rupture of membranes Qualifiers: PROM gestational age: full term
[2018-06-10] MEDS ORDERED: medroxyPROGESTERone Acetate Inj 150 MG/ML Syringe IM ONE (08:33)
[2018-06-10] MEDS: Senna/Docusate Sodium 8.6/50 MG Tablet PO SCH (08:56)
[2018-06-11] MEDS: Senna/Docusate Sodium 8.6/50 MG Tablet PO SCH ×2 (05:55→08:50)
--- NOTE | 2018-06-11 09:30 | P.PNOB ---
Subjective Post day: 2 Interval history: day #2 AFVSS overnight. Decreased lochia. Denies dysuria. No breast pain. Appetite good. No nausea or vomiting. Ambulating well. Denies calf pain or shortness of breath. Otherwise, she is doing well this morning and has no other complaints. Objective Vital Signs/I&O: Vital Signs 06/10/18 12:56 06/10/18 13:01 06/10/18 13:20 Temperature 98.0 F 98.0 F 98.2 F Pulse Rate 102 H 102 H 95 H Respiratory Rate 16 16 17 Blood Pressure 114/73 114/73 116/79 06/10/18 20:00 06/11/18 08:00 Temperature 98.4 F 98.0 F Pulse Rate 78 91 H Respiratory Rate 18 18 Blood Pressure 99/64 L 125/70 Intake & Output 06/10/18 06/11/18 06/11/18 18:59 06:59 18:59 Intake Total Balance Intake: Intake (Blood Product) Amt Rho(D) Immune Globulin Unit [id number] Result Diagrams: 06/08/18 17:50 Objective Remarks: GENERAL: Well-nourished, well-developed patient. CARDIOVASCULAR: Regular rate and rhythm without murmurs, gallops, or rubs. RESPIRATORY: Breath sounds equal bilaterally. No accessory muscle use. ABDOMEN/GI: Abdomen soft, non-tender. Fundus: Firm, non-tender at umbilicus. GENITOURINARY: Light to moderate bleeding. EXTREMITIES: No cyanosis or edema, non-tender, without signs of DVT. Medications and IVs: Active Medications Acetaminophen (Tylenol) 650 mg PO Q4H PRN PRN Reason: PAIN SCALE 1 TO 2 Al Hydroxide/Mg Hydroxide (Milk Of Magnesia Liq) 30 ml PO Q12H PRN PRN Reason: Mild Constipation Benzocaine (Americaine 20% Top [place]) 1 spray TOPICAL Q4H PRN PRN Reason: For Perineum Discomfort Bisacodyl (Dulcolax Supp) 10 mg RECTAL DAILY PRN PRN Reason: SEVERE CONSITIPATION Fentanyl/Bupivacaine/Sodium Chlor (Fentanyl 2 Mcg-Bupiv 0.125% Epi) 150 mls @ 12 mls/hr EPIDURAL PRN PRN PRN Reason: for Labor Pain Oxytocin (Pitocin 30 Units/Ns 500 Ml Premix) 30 units in 500 mls @ 100 mls/hr IV.CONT UNSCH PRN PRN Reason: Heavy bleeding Ibuprofen (Motrin) 800 mg PO Q8H PRN PRN Reason: For Cramping Last Admin: 06/10/18 15:20 Dose: 800 mg Lactulose (Lactulose Liq) 30 ml PO DAILY PRN PRN Reason: SEVERE CONSITIPATION Naloxone HCl (Narcan Inj) 0.1 mg IV.PUSH Q2M PRN PRN Reason: for opiate reversal Ondansetron HCl (Zofran Odt) 4 mg PO Q6H PRN PRN Reason: NAUSEA OR VOMITING Senna/Docusate Sodium (Alyssia-Colace) 1 tab PO BID [facility] Last Admin: 06/11/18 08:50 Dose: 1 tab Sennosides (Senokot) 17.2 mg PO Q12H PRN PRN Reason: Moderate Constipation Sodium Chloride (Ns Flush) 2 ml IV.FLUSH BID [facility] Last Admin: 06/11/18 05:55 Dose: Not Given Sodium Chloride (Ns Flush) 2 ml IV.FLUSH PRN PRN PRN Reason: FLUSH AFTER USING IV ACCESS [place]/Glycerin (Tucks Pads) 1 applicatio RECTAL QID PRN PRN Reason: HEMORRHOIDS Zolpidem Tartrate (Ambien) 5 mg PO HS PRN PRN Reason: SLEEP Assessment and Plan - Diagnosis (1) Premature rupture of membranes Code(s): O42.90 - Premature rupture of membranes, unspecified as to length of time between rupture and onset of labor, unspecified weeks of gestation Status : Acute - Plan 17y/o female who is PPD#2 s/p vaginal delivery. -Continue routine care. -Motrin PRN pain. -Encouraged OOB. Advised pelvic rest for 6 wks. -Re: ctrl, she received Depo-Provera as a bridge to Nexplanon. -D/c likely today. wdw Dr. Herring - Attending Attestation The patient was seen and examined by me and I participated in all seo decision making. Continue routine care. Anticipate discharge home today. SMS (1) Premature rupture of membranes Qualifiers: PROM gestational age: full term
== END 2018-06-11 13:23 | disposition home or self-care (01) ==
LOC: HOBED 12:16 → H2E 13:11 → H1EA 06-09 06:13
PROVIDERS: ADMIT Obstetrics & Gynecology; ATTEND Obstetrics & Gynecology